=== PATIENT | male | born 1985 | race Asian ===

== ENCOUNTER 2017-04-22 19:11 | Emergency (ER) | payer SELFPAY ==
--- NOTE | 2017-04-22 19:20 | UC ---
Lower Extremity/Ankle HPI - HPI Summary HPI Summary: Pt presents with left 3rd toe s/p jamming it on the floor at home earlier today. Since that time he has been elevating the toe and icing with mild relief. Toe is discolored and painful. Denies fever, recent illness, numbness, tingling, or hx of injury to this LE - History of Current Complaint Stated Complaint: TOE INJURY Time Seen by Provider: 04/22/17 19:17 Hx Obtained From: Patient Onset/Duration: Sudden Onset Severity Initially: Moderate Severity Currently: Moderate Pain Intensity: 4 Pain Scale Used: 0-10 Numeric Aggravating Factor(s): Standing, Ambulation Alleviating Factor(s): Rest, Elevation, Ice Able to Bear Weight: Yes - Allergies/Home Medications Allergies/Adverse Reactions: Allergies Allergy/AdvReac Type Severity Reaction Status Date / Time No Known Allergies Allergy Verified 04/22/17 19:17 Home Medications: Home Medications Phenylephrine W/ [id number] [Mucinex Congestion & Coug] 1 liq PO 04/22/17 [History] PMH/Surg Hx/FS Hx/Imm Hx Previously Healthy: Yes - Family History Known Family History: Positive: Unknown - Social History Occupation: Employed Full-time Lives: With Family Alcohol Use: Rare Substance Use Type: None Smoking Status (MU): Never Smoked Tobacco Review of Systems Constitutional: Negative Skin: Bruising - Left third toe Respiratory: Negative Cardiovascular: Negative Neurovascular: Negative Musculoskeletal: Decreased ROM - Left 3rd toe, Edema - Left 3rd toe, Other: - Pain Left 3rd toe Neurological: Negative Psychological: Negative All Other Systems Reviewed And Are Negative: Yes Physical Exam Triage Information Reviewed: Yes Appearance: Well-Appearing, No Pain Distress, Well-Nourished Vital Signs Reviewed: Yes Neck: Positive: Supple, Nontender, No Lymphadenopathy Respiratory: Positive: Chest non-tender, Lungs clear, Normal breath sounds, No respiratory distress Cardiovascular: Positive: RRR, No Murmur, Pulses Normal, Brisk Capillary Refill - Left 3rd toe Musculoskeletal: Positive: Strength Intact - left LE, ROM Limited @ - Left 3rd toe, Edema @ - Left 3rd toe, Other: - TTP over joint spaces Left 3rd toe. No MTP tenderness. Neurological: Positive: Alert, Other: - Sensations intact left 3rd toe and all left toes Psychological: Positive: Age Appropriate Behavior Skin: Positive: Other - Ecchymosis overlying left third toe. No nail injury.. Negative: rashes Lower Extremity Course/Dx - Course Course Of Treatment: Toe XR: SMALL DORSAL PLATE AVULSION FRACTURE AT THE DIP JOINT OF THE THIRD TOE. The toe was zoila taped to the adjacent larger toe and placed in a bulky dressing. Advised pt to RICE and take ibuprofen as needed for pain. - Differential Dx/Diagnosis Differential Diagnosis/HQI/PQRI: Contusion, Fracture (Closed), Fracture (Open), Subungual Hematoma, Sprain, Strain Provider Diagnoses: SMALL DORSAL PLATE AVULSION FRACTURE AT THE DIP JOINT OF THE THIRD TOE. Discharge - Discharge Plan Condition: Stable Disposition: HOME Patient Education Materials: Toe Fracture (ED) Referrals: [facility] - Adam CASTRO [Primary Care Provider] - Additional Instructions: If you develop a fever, SOB, chest pain, new or worsening symptoms - please call your PCP or go to the ED. When active, please keep the toe zoila taped to the adjacent toe and wrapped for added support and healing. May take Ibuprofen 400mg every 4-6 hours as needed for pain.
[2017-04-22 19:26] VITALS: BP 93/56
--- NOTE | 2017-04-22 19:49 | RAD ---
INDICATION: Left third toe injury COMPARISON: None TECHNIQUE: AP, lateral, and oblique views were obtained. FINDINGS: There is a small dorsal plate avulsion fracture at the base of the distal phalanx with minor distraction. No other fractures are evident. IMPRESSION: SMALL DORSAL PLATE AVULSION FRACTURE AT THE DIP JOINT OF THE THIRD TOE.
== END 2017-04-22 20:15 | disposition home or self-care (01) ==
LOC: UCEAST 19:11
DX: S92.502A Displaced unspecified fracture of left lesser toe(s), initial encounter for closed fracture (principal); W23.0XXA Caught, crushed, jammed, or pinched between moving objects, initial encounter; Y92.009 Unspecified place in unspecified non-institutional (private) residence as the place of occurrence of the external cause
CPT/HCPCS: 99201; G0463